=== PATIENT | female | born 2000 | race Caucasian/White ===

== ENCOUNTER 2025-03-12 10:31 | Outpatient (OUT) | payer OTHER, SELFPAY ==
--- OUTSIDE RECORDS SUMMARY | 2025-03-12 10:37 | XMS_ITS | Clinical Summary ---
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 Name Role Phone Mayur Messina MD Primary Care Provider [phone] Steffany Ruelas NP Unavailable [phone] Allergies No known active allergies Medications MedicationSigDispense QuantityRefillsLast FilledStart DateEnd DateStatus glycopyrrolate (Robinul) 1 MG tablet take 2 tablets by mouth once daily4Active norgestimate-ethinyl estradiol (Tri-Sprintec) 0.18/0.215/0.25 MG-35 MCG tablet Indications:Encounter for initial prescription of contraceptive pillsTake 1 tablet by mouth Daily for 28 days 28 tablet 5Active Active Problems ProblemNoted DateDiagnosed DateAcute cystitis with ojvbjncuj71/17/2025Encounter for initial prescription of contraceptive pills09/26/2024 Assessment & Plan (09/26/2024 4:45 PM EDT): Reviewed options Would like pill Wednesday start Hand out on ACHES given Fu in 3 months Neg urine UTI jxtatuva58/07/2025 Assessment & Plan (09/26/2024 4:44 PM EDT): +UTI Tx with macrobid BID for 7 days If not resolved call office and will order culture Currently on menses Vaginal yeast hoajdpins39/07/2025Encounter for wellness examination in adult 02/23/2024 Assessment & Plan (02/23/2024 5:03 PM EST): Reviewed Ht/Wt/BMI Recommend eye exam yearly Recommend dental exams twice a year Balance work/leisure activities Exercises is recommended most days of the week (appropriate as chronic conditions allow) Follow up yearly and prn Recommend consideration of scheduling PAP smear as well Morbid obesity due to excess pragqcll05/13/2024 Assessment & Plan (09/26/2024 4:44 PM EDT): Discussed with patient their BMI (actual, verses recommended). We have also discussed lifestyle modifications: attempts to perform physical activity as chronic conditions allow, also to monitor dietary intake: increasing protein/fruits/veggies and lowering carb intake (unless contraindicated). Limit sodas, juices, and sugary drinks. Assessment & Plan (02/23/2024 5:02 PM EST): Discussed with patient their BMI (actual, verses recommended). We have also discussed lifestyle modifications: attempts to perform physical activity as chronic conditions allow, also to monitor dietary intake: increasing protein/fruits/veggies and lowering carb intake (unless contraindicated). Limit sodas, juices, and sugary drinks. Menorrhagia with regular cycle12/27/2023 Assessment & Plan (12/27/2023 6:45 PM EDT): Will continue on with depo shot Also needs to have a PAP smear scheduled with next appt for depo Stress incontinence in raxtky3806/21/2023Menstrual /11/2024 Resolved Problems ProblemNoted DateDiagnosed DateResolved DateFamily lvybuuip46/ Rwhtnvjfaqaj66/16/202411/ Assessment & Plan (12/27/2023 6:44 PM EDT): Will trial keflex BID for 10 days Add OTC hibiclens as well For 7 days then twice a week Immunizations ImmunizationAdministration DatesNext VkkUEyU9504/28/2007,03/13/2003,01/31/2002 DTaP, Umxtcnptfrq45/25/2003,04/07/2002HPV, Kddnskfykflh99/26/2015Hep A, ped/adol, 2 dose09/04/2014Hep B, Adolescent or Kkoozgfgt14/12/2002HiB, /27/2002Hib (PRP-T)03/13/2003Hib / Hep B006/06/2002,01/31/2002IPV 04/28/2007,04/07/2002,01/31/2002MMR04/28/2007,11/28/2002Meningococcal MCV4P 11/16/2019Pfizer Wilkinson Cap SARS-CoV-2 Itubzvttyzx60/07/2022Pfizer Purple Cap SARS-CoV-2 Btvlqpctbpc25/17/2022Polio, Kwegwlmwzuo89/19/3308Gfdr37/26/2015 Sktfyvegr56/19/2003 Family History Medical HistoryRelationNameCommentsCancerMaternal GrandmotherRelationNameStatus CommentsMaternal Grandmother Social History Tobacco UseTypesPacks/DayYears UsedDateSmoking Tobacco: Never Tobacco Cessation:Counseling Given: Not Answered CommentsUnknownSex and Gender InformationValueDate RecordedSex Assigned at BirthNot on fileLegal BbtIzfejq02/24/2023 10:45 AM EDTGender IdentityNot on fileSexual OrientationNot on file Last Filed Vital Signs Vital SignReadingTime TakenCommentsBlood Xlfzwoot938/76009/26/2024 3:45 PM EDT Mibum669509/26/2024 3:45 PM OHZRfqevylhglc77.6 ??C (97.8 ??F)09/26/2024 3:45 PM EDTRespiratory Ydeb404609/26/2024 3:45 PM EDTOxygen Annncekqen53%09/26/2024 3:45 PM EDTInhaled Oxygen Concentration--Ditjvk245 kg (227 lb 12.8 oz)09/26/2024 3:45 PM QFSWxhixp178.5 cm (5' 2 )09/26/2024 3:45 PM EDTBody Mass Index41.67009/26/2024 3:45 PM EDT Plan of Treatment Health MaintenanceDue DateLast DoneCommentsCOVID-19 Vaccine ( season) 5005/19/2021, 04/28/2021Influenza VaccineDiscontinuedPneumococcal Vaccine: Pediatrics (0 to 5 Years) and At-Risk Patients (6 to 64 Years)Aged Out No longer eligible based on patient's age to complete this topic Insurance Care Teams Team MemberRelationshipSpecialtyStart DateEnd Date Mayur Messina MD PCP - GeneralFamily Medicine11/02/22 Steffany Ruelas NP Referring PhysicianNurse Practitioner11/02/22
[2025-03-12 11:03] LABS: Glucose Urine UA NEGATIVE (NEGATIVE)
[2025-03-12 11:09] LABS: Hematocrit 39.5 % (36.0-48.0); Hemoglobin 13.8 g/dL (12.0-16.0); Immature Granulocytes Abs Auto 0.02 10^3/uL (0.00-0.03); Immature Granulocytes Pct Auto 0.3 % (0.0-0.5); Lymphocytes Absolute Auto 1.8 10^3/uL (1.2-3.8); Mean Corpuscular HGB Conc 34.9 g/dL (29.9-35.2); Mean Corpuscular Hemoglobin 30.6 pg (26.7-34.0); Mean Corpuscular Volume 87.6 fL (81.0-99.0); Platelet Count 330 10^3/uL (150-450); Red Blood Count 4.51 10^6/uL (4.20-5.40); White Blood Count 7.8 10^3/uL (4.0-11.0)
[2025-03-12 11:28] LABS: Alanine Aminotransferase 15 U/L (14-59); Albumin Globulin Ratio 0.9; Albumin Level 3.4 g/dL (3.4-5.0); Alkaline Phosphatase 55 U/L (46-116); Anion Gap 14.9; Aspartate Amino Transferase 14 U/L (15-37); Blood Urea Nitrogen 9.0 mg/dL (7.0-18.0); Calcium 8.8 mg/dL (8.5-10.1); Carbon Dioxide 24.1 mmol/L (21.0-32.0); Chloride 103 mmol/L (98-107); Cholesterol 261 mg/dL (<=200); Estimated GFR (African America >60 (>=60 mL/min/1.73m^2); Estimated GFR (Non-African Ame >60 (>=60 mL/min/1.73m^2); Globulin 3.8 g/dL; Glucose 87 mg/dL (74-106); HDL Cholesterol 68 mg/dL (40-60); Potassium 4.0 mmol/L (3.5-5.1); Sodium 138 mmol/L (136-145); Thyroid Stimulating Hormone 1.414 uIU/mL (0.358-3.740); Total Protein 7.2 g/dL (6.4-8.2); Triglycerides 216 mg/dL (<=150); VLDL CHOLESTEROL 43.2 mg/dL
[2025-03-12 12:15] LABS: Cast Seen? NONE SEEN #/LPF (NONE SEEN); Crystals Seen? None Seen #/HPF (None Seen)
== END 2025-03-12 10:32 | disposition home or self-care (01) ==
LOC: LAB 10:34
PROVIDERS: PCP Nurse Practitioner; Visit Provider Nurse Practitioner
DX: Z00.00 Encounter for general adult medical examination without abnormal findings (principal)
CPT/HCPCS: 36415; 80053; 80061; 81001; 84443; 85025